=== PATIENT | male | born 1965 | race Caucasian/White ===

== ENCOUNTER → 2016-11-05 | Outpatient (CLI) | payer OTHER ==
--- NOTE | 2016-11-06 10:52 | DI ---
PA /LATERAL CHEST X-RAY, 11/05/2016 4:17 PM : Clinical History: Cough Previous Exam: None at this facility. There is an old healed mid right clavicular fracture. Heart size is normal. Lungs are clear. Mediastinal structures are normal. There are no pulmonary nod ules. IMPRESSION: Old healing right mid clavicular fracture otherwise unremarkable.
== END ==
LOC: MOB RAD 16:19
PROVIDERS: ATTEND Family Medicine
DX: R05 Cough (principal)
CPT/HCPCS: 71020